=== PATIENT | female | born 1960 | race Caucasian/White ===

== ENCOUNTER 2025-04-27 11:10 | Emergency (ER) | payer MEDICARE, SELFPAY ==
[2025-04-27 11:22] VITALS: BP 142/82
--- NOTE | 2025-04-27 11:57 | ED.GENMED ---
History of Present Illness
General
Chief Complaint: Crisis Evaluation
Time Seen by Provider: 04/27/25 11:47
Nursing documentation reviewed up to this point in time: agreed with
History of Present Illness
History of Present Illness:
64-year-old female brought to the ER by police for further evaluation of possible altered mental status. Patient was found sleeping in a vehicle that was not her own. Patient reports that she got locked out of her house and she sought detention in a
car that was unlocked. She reports that at some point she struck her face on a shelf. She is very guarded with answering questions and tells me that she does not need to be here in the emergency room. She sees her doctors regularly and reports
that none of her physicians are affiliated with [facility]. She would not tell me her medication list. She would not tell me her prior medical history. 302 was filed by police.
Review of Systems
Review of Systems
Allergies reviewed?: Yes
Phy Exam
Physical Exam
Physical Exam:
Patient is awake, alert, appears no acute distress, moving herself around the room without assistance, no focal weakness noted to the extremities, healing ecchymosis present right periorbital region, PERRL, EOMI, mucous membranes moist, no extremity
edema noted, GCS is 14-patient believes that it is April 26, she seems paranoid in response to questions and is easily agitated. She declined for me to physically examine her
Course
Orders/Labs/Results
Orders:
Orders
04/27/25 12:10
1:1 Observation - Suicide/ Violent Behavior As Directed
Electrocardiogram (*1) Urgent
Reason for Study: QTc Monitoring
CT Head W/o Iv Contrast Urgent
Comment:
Reason For Exam: trauma
EKG- Treatment ONCE
Olanzapine [Zyprexa] 10 mg IM NOW STA
04/27/25 12:44
Midazolam HCl [Versed] 2 mg .ROUTE .STK-MED ONE
09/15/25 12:46
Midazolam HCl [Versed] 2 mg IM NOW STA
04/27/25 14:13
Acetaminophen Urgent
Alcohol Urgent
Complete Blood Count/With Diff Urgent
Comprehensive Metabolic Panel Urgent
Salicylate Urgent
TSH Receptor Antibody [S] Urgent
04/27/25 15:33
Urinalysis Reflex To Culture Urgent
Date Specimen was Collected: 04/27/25
Time Specimen was Collected: 12:24
Urine Drug Abuse Screen Urgent
Date Specimen was Collected: 04/27/25
Time Specimen was Collected: 12:25
Urine Microscopic Reflex Cult Urgent
Urine Culture Urgent
JOHANNA Source: U
Specimen Description:
Date Specimen was Collected: 04/27/25
Time Specimen was Collected: 12:24
04/27/25 20:00
Cephalexin Monohydrate [Keflex] 500 mg PO BID
Abnormal Lab Results
04/27/25 04/27/25
14:13 15:33
WBC 4.3 L 10^3/uL
(4.8-10.8)
RBC 4.11 L 10^6/uL
(4.20-5.40)
MCH 31.4 H pg
(27.0-31.0)
MCHC 32.8 L g/dL
(33.0-37.0)
MPV 11.5 H fL
(7.4-10.4)
Absolute Lymphs (auto) 1.1 L 10^3/uL
(1.2-3.4)
Creatinine 0.4 L mg/dL
(0.6-1.0)
Glucose 108 H mg/dl
(70-99)
Urine Ketones 3+ A
(Negative)
Leukocyte Esterase Rfl 1+ A
(Negative)
Urine RBC 3-6 A /HPF
(0-2)
Urine WBC (Reflex) 11-15 A /HPF
(0-5)
Urine Bacteria (Reflex) Moderate A
(Negative)
Urine Albumin (Reflex) 1+ A
(Neg - Trace)
Salicylates < 1.0 L mg/dl
(2.0-20.0)
Acetaminophen < 10 L ug/ml
(10-30)
04/27/25 14:13
04/27/25 14:13
CBC and chemistries within normal limits. Tylenol salicylates and alcohol levels are negative. Awaiting urinalysis for medical clearance. Urine with bacteria, concerning for UTI
Vital Signs
Initial and Last Documented VS:
Initial Vital Signs
Temp Pulse Resp BP Pulse Ox
98.1 F 88 20 142/82 99
04/27/25 11:22 04/27/25 11:22 04/27/25 11:22 04/27/25 11:22 04/27/25 11:22
Last Documented Vital Signs
Temp Pulse Resp BP Pulse Ox
98.3 F 80 18 106/68 100
04/27/25 14:23 04/27/25 14:23 04/27/25 14:23 04/27/25 14:23 04/27/25 14:23
MDM/Problems Addressed
Differential Diagnosis Includes:
Differential diagnosis to consider but not limited to intracranial hemorrhage, acute infection, electrolyte disturbance, polysubstance use disorder along with other etiologies considered
*Radiology
Radiology exam reviewed: radiology read reviewed (IMPRESSION: 1. Mild to moderate bilateral frontal and parietal lobe volume loss. 2. Mild bilateral periventricular white matter leukoaraiosis.)
*Pulse Oximetry
SaO2: 99
Oxygen Mode of Delivery: Room air
Patient hypoxic: no
*EKG
Interpreted by ED Provider?: Yes (I independently viewed and interpreted twelve-lead EKG showing normal sinus rhythm with mild baseline artifact, normal axis, rate 74, this is a likely normal EKG with normal intervals, no prior for comparison)
*Rn Cardiac Cath Interpretation
Rate: normal (I independently viewed and interpreted rhythm strip showing normal sinus rhythm, no ectopy)
*Critical Care Note
Total Time (30-74mins, 75-104mins- exclusive of procedures): Not Applicable
Update Note
Update Note:
I discussed provide full patient presentation and history with Dr. Roper, psychiatry. Patient is on 302 from police. He would recommend full medical workup including CT head given outward evidence of trauma. Patient is not cooperative. Given
concern for possible intracranial hemorrhage, and lack of patient insight at the current time, will give Versed, Zyprexa to help facilitate obtaining screening labs to rule out other acute medical process as etiology of abrupt change in behavior.
1525: When presented with the reality that she was under 302, patient was cooperative for lab draw. CT head does not show any acute evidence for traumatic process. Awaiting urinalysis for formal medical clearance.
Will initiate Keflex for treatment of UTI. Patient is medically cleared for psych placement.
ED Attending Note
-
Portions of this chart may have been created with voice recognition software.� Occasional wrong word or��sound alike� substitutions may have occurred due to the inherent limitations of voice recognition software.
Discharge Plan
Departure
Patient Status:: 302
Discharge Problem:
UTI (urinary tract infection), Acute psychosis
Prescriptions:
New
cephalexin 500 mg capsule
500 mg PO Q12H Qty: 10 0RF
Interventions
Interventions:
*Risk Screen - Suicide Last Done: 04/27/25 12:10
*General Assessment Last Done: 04/27/25 11:22
ED-Psychological Assessment Last Done: 04/27/25 13:32
Discharge Date and Time
Print Language: EAST [place]OR[place]
--- NOTE | 2025-04-27 12:50 | PTCARENOTE ---
this RN attempted to change patient into paper scrubs, obtain blood work and EKG ordered by the provider. patient was non-agreeable, began to raise her voice and displayed aggressive behavior. provider ordered IM Zyprexa to be given and security was
called to beside. upon explaining that we were going to need to restrain her, she became agreeable to change into paper scrubs and to blood work and EKG.
[2025-04-27 14:23] VITALS: BP 106/68
[2025-04-27 14:24] LABS: Hematocrit 39.3 % (37.0-47.0); Hemoglobin 12.9 g/dL (12.0-16.0); Mean Corp Hgb Conc. 32.8 g/dL (33.0-37.0); Mean Corpuscular Volume 95.6 fL (81.0-99.0); Nucleated Red Blood Cells % 0 %; Platelet Count 181 10^3/uL (130-400); Red Cell Dist. Width 12.9 % (11.5-14.5)
[2025-04-27 14:33] LABS: ALT (SGPT) 22 U/L (0-35); AST (SGOT) 26 U/L (14-36); Acetaminophen < 10 ug/ml (10-30); Albumin 4.6 g/dl (3.5-5.0); Alkaline Phosphatase 53 U/L (38-126); Blood Urea Nitrogen 11 mg/dl (7-17); Calcium 9.0 mg/dl (8.4-10.2); Carbon Dioxide 26 mmol/L (22-30); Chloride 103 mmol/L (98-107); Glucose 108 mg/dl (70-99); Potassium 4.0 mmol/L (3.5-5.1); Salicylate < 1.0 mg/dl (2.0-20.0); Sodium 138 mmol/L (135-145); Total Protein 6.9 g/dl (6.3-8.2); eGFR > 60.00
[2025-04-27 15:51] LABS: Urine Character Clear (Clear)
[2025-04-27 16:35] LABS: Urine Squamous Cell 0-2 /LPF (Few); Urine Urothelial Cell 0-2 /LPF (FEW)
--- NOTE | 2025-04-27 17:33 | CS.PSYCHR ---
Addendum entered and electronically signed by Camacho Roper MD 04/27/25 23:37:
Friend returned call and gave much information. Has known patient for many years, though currently lives in [facility]. For at least the past 8 years patient has been convinced that she is being spied upon, that people walking down the street are paid
by the [employer] [facility] to watch her. Has never had psychiatric care, though at the time of her second divorce she saw a therapist. Patient is estranged from her tow sons, one of whom lives in [place] (and has had his own mental health problems.)
Friend Allegra Caballero states that patient has always been thin but seems to be getting thinner. she has at times preferred to meet outside of her home due to her conviction that it it bugged; keeps phone turned off for same reason. She hopes
psychiatric care will help, wants to know if she gets hospitalized where it will be.
Original Note:
Consult Summary - Psychiatry
-
pt seen by me at 1140 and again at 5 pm to assess for 302 need.
64 yo woman found by police sleeping in a neightbor's car; had been locked out of her home. Police tried speaking with her about getting a prism measurer but pt unable to process this, so brought to ED for eval (also had evident of bruise to face.)
On exam pt very angry, insisted that she be allowed to leave immediately. Informed of 302 policy/procedure/law, would not listen to this. Demanded that I call her doctors when told of her right to ask for someone to be kept abreast of her progress
here.
Pt insisted that no one would be in, since it was Sunday. I informed her that it was Sunday, and even showed her the day/date on my phone 'You could make that say anything.' Said that I would lie and tell her that I would call when I would not. I
looked up and dialed number on speaker.
I contacted Dr Lora's office, a pain management clinic. Her doctor is out this week, but office staff offered to have another provider return my call. Pt began yelling at phone 'Mayela, tell them that I'm not a mental patient.'
Other provider called back, told me that pt had been in office 2 days ago to make appt. They had no sense of mental illness.
Gave me a list of her meds, which included gabapentin 800 mg tid, mididrine, spironolactone, vitamin supplement, prolia IM Problems listed where osteoarthritis, Sjogren's, hypthyroidism They also gave me the number of an emergency contact friend
Allegra Pollockcourtney [phone]. left text
On exam pt is this white female casually/neatly dressed though with smudged makeup. Uncooperative, angry that she is here, questions my authority, does not think I am a doctor. Tells me 'You're fucking with me, you'fe fucking big time.' apologizes
for having insisted that it was Sunday, but still thinks I was trying to trip her up. No insight, refuses to review events of admission 'I'm not going to play into your game.'
Impression: Acute psychosis
lab studies show mild UTI findings on u/a. CT head ok, Metabolic and CBC studies normal.
Will need to be held to evaluate for etiology, likely in geriatric psychiatry unit.
Awaiting return call from friend
[2025-04-27 18:07] VITALS: BP 107/62
[2025-04-27 21:47] VITALS: BP 111/62
[2025-04-28 10:51] VITALS: BP 97/65
--- NOTE | 2025-04-28 16:32 | W.PN.UPDATE ---
Update Note
Progress Note Update
pt seen several times today, attempting to ascertain information to determine insurance status, as well as to make sure pt was eating and drinking. When last seen had lunch tray in front of her, able to have given soc security number to staff. Still
believes I am not who I say I am, that I am not credentialed. Offered to call friend Allegra with her but pt declined. Continue to pursue placement. I offered meds but pt declines 'you're not my doctor.'
[2025-04-28 19:05] LABS: COVID-19 Antigen Negative (Negative)
== END 2025-04-28 23:43 ==
LOC: EMR 11:10
PROVIDERS: Emergency Medicine; EMERGENCY PHYSICIAN Emergency Medicine
DX: N39.0 Urinary tract infection, site not specified (principal); F23 Brief psychotic disorder
CPT/HCPCS: 99284; 70450; 80053; 80143; 80179; 80306; 81003; 81015; 82077; 83520; 85025; 87086; 87811; 93005; J2358